=== PATIENT | male | born 1940 | race American Indian/Alaskan Native ===

== ENCOUNTER 2017-03-21 20:35 | Inpatient (IN) | payer MEDICARE ==
[2017-03-21 22:38] LABS: Basophils % (Auto) 0.4 % (0.0-1.8); Eosinophils % (Auto) 2.2 % (0.0-4.3); Hemoglobin 12.2 gm/dl (11.8-15.2); Mean Corpuscular HGB Conc 34 % (32-34); Mean Corpuscular Hemoglobin 32 pg (28-32); Mean Corpuscular Volume 96 fl (84-94); Platelet Count 297 K/mm3 (140-440); Red Blood Count 3.76 M/mm3 (3.65-5.03); Red Cell Distribution Width 13.1 % (13.2-15.2); White Blood Count 14.5 K/mm3 (4.5-11.0)
[2017-03-21 22:40] LABS: Alanine Aminotransferase 20 units/L (7-56); Albumin 3.7 g/dL (3.9-5); Albumin/Globulin Ratio 1.1 %; Alkaline Phosphatase 74 units/L (35-129); Anion Gap 22 mmol/L; BUN/Creatinine Ratio 23.33; Blood Urea Nitrogen 21 mg/dL (9-20); Calcium 8.5 mg/dL (8.4-10.2); Carbon Dioxide 19 mmol/L (22-30); Chloride 82.9 mmol/L (98-107); Glucose 276 mg/dL (75-100); Lipase 113 units/L (13-60); Potassium 4.1 mmol/L (3.6-5.0); Sodium 120 mmol/L (137-145); Total Protein 7.1 g/dL (6.3-8.2)
[2017-03-21] MEDS ORDERED: NACL 0.9% 1000 ML 1,000 ML IV ONE (22:51)
[2017-03-21] MEDS ORDERED: NACL ONE (23:07)
--- NOTE | 2017-03-21 23:15 | Emergency Department Report ---
HPI - General Chief Complaint: Weakness Time Seen by Provider: 03/21/17 22:50 - HPI HPI: Room 19 The patient is a 76-year-old male presenting with a chief complaint of abdominal pain and tremulousness. Family brought in from home for multiple complaints which includes hot and cold flashes for one day, bilateral lower extremity pain for 2 weeks, difficulty ambulating, dizziness and tremulousness for 1 day. Family states the patient is also some her from insomnia. The patient originally complained of difficulty urinating so the niece made the patient drink 8 cups of water and down the patient is urinating frequently Location: [see above] Duration: [see above] Quality: Pain Severity: Moderate Modifying factors: [see above] Context: [see above] Mode of transportation: [not driving] ED Past Medical Hx - Past Medical History Hx Diabetes: Yes Hx Dementia: Yes - Surgical History Past Surgical History?: No - Family History Family history: no significant - Social History Smoking Status: Never Smoker Substance Use Type: None ED Review of Systems ROS: Stated complaint: GENERAL ILLNESS Other details as noted in HPI Comment: All other systems reviewed and negative Constitutional: chills, weakness Eyes: denies: eye pain, eye discharge, vision change ENT: denies: ear pain, throat pain Respiratory: denies: cough, shortness of breath, wheezing Cardiovascular: denies: chest pain, palpitations Endocrine: no symptoms reported Gastrointestinal: abdominal pain Genitourinary: other (difficulty urinating) Musculoskeletal: myalgia Skin: denies: rash, lesions Neurological: other (tremulousness) Psychiatric: denies: anxiety, depression Hematological/Lymphatic: denies: easy bleeding, easy bruising Physical Exam - Physical Exam Vital Signs: Vital Signs 03/21/17 21:06 Temperature 98.9 F Pulse Rate 71 Respiratory 18 Rate Blood Pressure 140/81 O2 Sat by Pulse 99 Oximetry Physical Exam: GENERAL: The patient is well-developed well-nourished male lying on stretcher not appearing to be in acute distress. [] HEENT: Normocephalic. Atraumatic. Extraocular motions are intact. Patient has moist mucous membranes. NECK: Supple. Trachea midline CHEST/LUNGS: Clear to auscultation. There is no respiratory distress noted. HEART/CARDIOVASCULAR: Regular. There is no tachycardia. There is no gallop rub or murmur. ABDOMEN: Abdomen is soft, nontender. Patient has normal bowel sounds. There is no abdominal distention. SKIN: There is no rash. There is no edema. There is no diaphoresis. NEURO: The patient is awake and alert. The patient is cooperative. The patient has no focal neurologic deficits. The patient has normal speech. Cranial nerves II through XII grossly intact, no drift, assistant associate full professor 5+/5 bilaterally. Mild tremulousness noted MUSCULOSKELETAL: There is no evidence of acute injury. ED Course Vital Signs 03/21/17 21:06 Temperature 98.9 F Pulse Rate 71 Respiratory 18 Rate Blood Pressure 140/81 O2 Sat by Pulse 99 Oximetry ED Medical Decision Making - Lab Data Result diagrams: 03/21/17 22:04 03/21/17 22:04 Laboratory Tests 03/21/17 03/21/17 03/21/17 22:04 22:04 22:50 WBC 14.5 H RBC 3.76 Hgb 12.2 Hct 36.0 MCV 96 H MCH 32 MCHC 34 RDW 13.1 L Plt Count 297 Lymph % (Auto) 9.4 L [place] % (Auto) 7.5 H Eos % (Auto) 2.2 Baso % (Auto) 0.4 Lymph # 1.4 [place] # 1.1 H Eos # 0.3 Baso # 0.1 Seg Neutrophils % 80.5 H Seg Neutrophils # 11.7 H Sodium 120 L Potassium 4.1 Chloride 82.9 L Carbon Dioxide 19 L Anion Gap 22 BUN 21 H Creatinine 0.9 Estimated GFR > 60 BUN/Creatinine Ratio 23.33 Glucose 276 H Calcium 8.5 Total Bilirubin 0.50 AST 24 ALT 20 Alkaline Phosphatase 74 Total Protein 7.1 Albumin 3.7 L Albumin/Globulin Ratio 1.1 Lipase 113 H Urine Color Straw Urine Turbidity Clear Urine pH 6.0 Ur Specific [place] 1.001 L Urine Protein <15 mg/dl Urine Glucose (UA) >=500 Urine Ketones Tr Urine Blood Sm Urine Nitrite Neg Urine Bilirubin Neg Urine Urobilinogen < 2.0 Ur Leukocyte Esterase Neg Urine WBC (Auto) < 1.0 Urine RBC (Auto) < 1.0 Urine Bacteria (Auto) 1+ Urine Mucus Few - Differential Diagnosis acute pancreatitis, electrolyte abnormality, UTI Critical care attestation.: If time is entered above; I have spent that time in minutes in the direct care of this critically ill patient, excluding procedure time. ED Disposition Clinical Impression: Hyponatremia, Acute pancreatitis, Acute abdominal pain Disposition: OP ADMIT IP TO THIS HOSP Is pt being admited?: Yes Does the pt Need Aspirin: No Condition: Fair Referrals: PRIMARY CARE, [Primary Care Provider] - 3-5 Days Time of Disposition: 00:21 (hospitalist notified. CT abdomen and pelvis pending )
[2017-03-21] MEDS ORDERED: HALDOL IM ONE (23:34)
[2017-03-21] MEDS ORDERED: ATIVAN IM ONE (23:34)
[2017-03-21 23:42] LABS: Bacteria,Urine 1+ /HPF (Negative); Bilirubin,Urine NEG (Negative); Blood,Urine SM (Negative); Ketones,Urine TR mg/dL (Negative); Leukocyte Esterase,Urine NEG (Negative); Mucus,Urine FEW /HPF; Nitrite,Urine NEG (Negative); Protein,Urine <15 mg/dL mg/dL (Negative); RBC,Urine < 1.0 /HPF (0.0-6.0); Urobilinogen,Urine < 2.0 mg/dL (<2.0); WBC,Urine < 1.0 /HPF (0.0-6.0)
--- NOTE | 2017-03-22 02:44 | Cat Scan Report ---
FINAL REPORT PROCEDURE: CT ABDOMEN PELVIS W CON TECHNIQUE: Computerized axial tomography of the abdomen and pelvis was performed after the IV injection of iodinated nonionic contrast. HISTORY: epigastric abdominal pain COMPARISON: No prior studies are available for comparison. FINDINGS: Visualized lower thorax: Mild chronic obstructive pulmonary changes in both lower lungs.. Liver: There is fatty infiltration of the liver. Spleen: Normal size and attenuation. Gallbladder and biliary system: The gallbladder is absent. No dilatation of the biliary ductal system. Pancreas: Normal. Adrenals: Normal. Kidneys: There is a horseshoe kidney. No hydronephrosis. No renal masses or stones. GI tract: There is a moderate-sized hiatal hernia. The stomach is normal. The small bowel has a normal appearance. The cecum, appendix region and colon are normal.. Lymph nodes and mesentery: Normal. Vasculature: Moderate atherosclerosis of the aorta and branching vessels.. Bladder: Normal. Reproductive organs: Normal. Peritoneum: No free fluid. Musculoskeletal structures: Mild degenerative changes of the spine. No acute osseous abnormality.. Other: None. IMPRESSION: There is no evidence of intestinal or urinary tract obstruction. No ileus or enteritis. Moderate-sized hiatal hernia is identified. Previous cholecystectomy. There is fatty infiltration of the liver.
--- NOTE | 2017-03-22 02:58 | Admit Criteria Form ---
Admission Criteria Documentation: ABDOMINAL PAIN Clinical Indications for Admission to Inpatient Care (Place 'X' for any and all applicable criteria): Admission is indicated for ANY ONE of the following(1)(2)(3)(4)(5): [X ]I. Inpatient admission required rather than observation care (Also use Abdominal Pain: Observation Care, as appropriate) because of ANY ONE of the following: [ ]a) Severe pain requiring acute inpatient management [ ]b) Identification of etiology/finding that requires inpatient care (eg, aortic dissection, free air) [ ]c) Absent bowel sounds with complete ileus(6) [ ]d) Suspected toxic megacolon [X ]e) Severe electrolyte abnormalities requiring inpatient care [ ]f) High fever or infection requiring inpatient admission as indicated by ANY ONE of following(7)(8): [ ] i) Appropriate outpatient or observational care antimicrobial treatment unavailable, not effective, or not feasible [ ] ii) Documented bacteremia [ ] iii) Temperature > 104.9 degrees F (oral) [ ] iv) T >103.1 F (oral) or < 96.8 F(rectal) that does not respond to all emergency treatment measures [ ]g) Signs of intestinal obstruction [B] [ ]h) Hemodynamic instability [ ]i) IV fluid to replace significant ongoing losses (greater than 3 L/m2 per day) (12)(13) [ ]j) Percutaneous or open drainage (eg, abscess, biliary tract ) procedures [ ]k) Parenteral nutrition regimen that must be implemented on inpatient basis [ ]l) Other condition,treatment or monitoring requiring inpatient admission. [ ]II. Peritoneal signs present [ ]III. Surgery needed that cannot be performed on an ambulatory basis. [ ]IV. Evaluation requires patient to not eat or drink for extended period ( eg, more than 24 hours). [ ]V. Contraindications and/or Inappropriate clinical situations for Observational Care in patients with abdominal pain, when ANY ONE of the following is required: [ ]a) Thorough evaluation is required to prevent catastrophic events due to delays in diagnosing (e.g.Mesenteric ischemia) 1,3 [ ]b) Patient with severe pathology or with chronic symptoms unlikely to improve in the ED stay (3) [ ]. General contraindications and/or Inappropriate clinical situations for Observational Care in patients with abdominal pain, when ANY ONE of the following is required: [ ]a) Prediction of prolongation of LOS based on ANY ONE of the following may be considered as a contraindication for observational care 2, 3, 4, 5, 6, 7, 8, 9, 10, 11 [ ]i) Age > 65 yrs. [ ]ii) Patient arriving by ambulance [ ]iii) Patient with high acuity [ ]iv) Patient requiring vital sign monitoring [ ]v) Patient on IV medication [ ]b) Systolic blood pressures 180mmHg 3,12 [ ]c) Patient with altered mental status including delirium and other alteration of consciousness, (3) [ ]d) Patient whose discharge disposition will be to a jail home or rehabilitation home should not be managed in Emergency Department Observation Unit. CMS rule requires 3 days hospital stay before such placement.3,13 [ ]e) Patient with failure to thrive due to broad array of etiologies 3,16,17 [ ]f) Inability to ambulate 3,14 Extended stay beyond goal length of stay may be needed for(2)(3): [ ]a) Persistent abdominal pain with suspected intra-abdominal process [ ]b) Diagnosed condition requiring continued stay (e.g., pancreatitis, complicated diverticulitis) [ ]c) Surgery (e.g., colectomy) The original [facility] content created by [employer] has been revised. The portions of the content which have been revised are identified through the use of italic text or in bold, and [facility] has neither reviewed nor approved the modified material.All other unmodified content is copyright [facility]. Please see references footnoted in the original [facility] [employer] edition 2016 Admission Criteria Met: Yes
[2017-03-22] MEDS ORDERED: ZOFRAN IV PRN (03:01)
[2017-03-22] MEDS ORDERED: TYLENOL PO PRN (03:01)
[2017-03-22] MEDS ORDERED: MILK OF MAGNESIA PO PRN (03:01)
[2017-03-22] MEDS ORDERED: D50W (25GM) IV PRN (03:01)
[2017-03-22] MEDS ORDERED: DULCOLAX PR PRN (03:01)
--- NOTE | 2017-03-22 03:03 | History and Physical Report ---
History of Present Illness Date of examination: 03/22/17 History of present illness: 76 -year-old man with a history of diabetes ,dementia was sent to the emergency room with multiple complaints. The patient is unable to give a history. Per the triage note, the patient has abdominal pain, pain in his legs , can't sleep, shakes when he walks and has cold and hot flashes. Other review of system is unable to be obtained, unable to reach family PAST SURGICAL HISTORY: Unknown SOCIAL HISTORY: Unknown FAMILY HISTORY: Unknown Medications and Allergies Allergies Allergy/AdvReac Type Severity Reaction Status Date / Time No Known Allergies Allergy Verified 03/22/17 00:10 Home Medications Medication Instructions Recorded Confirmed Last Taken Type Unobtainable 03/22/17 03/22/17 Unknown History Active Meds: Active Medications Acetaminophen (Tylenol) 650 mg PO Q4H PRN PRN Reason: Pain MILD(1-3)/Fever >100.5/LOPEZ Bisacodyl (Dulcolax) 10 mg LA QDAY PRN PRN Reason: Constipation unrelieved by MOM Dextrose (D50w (25gm)) 50 ml IV PRN PRN PRN Reason: Hypoglycemia Enoxaparin Sodium (Lovenox) 30 mg SUB-Q QDAY BRIAN Sodium Chloride (Nacl 0.9% 1000 Ml) 1,000 mls @ 75 mls/hr IV DIRECT BRIAN Magnesium Hydroxide (Milk Of Magnesia) 30 ml PO Q4H PRN PRN Reason: Constipation Ondansetron HCl (Zofran) 4 mg IV Q8H PRN PRN Reason: N/V unrelieved by Reglan Exam - Physical Exam Narrative exam: Gen. appearance: Patient lying in bed, no apparent distress HEENT: Normocephalic, atraumatic, pupils equally round and reactive to light, extraocular movement intact, and no sclericterus,. No JVD or thyromegaly or nodule,neck supple, no carotid bruit ,mucous membranes moist, no exudate or erythema Heart: S1, S2, regular rate and rhythm Lungs: Clear to auscultation bilaterally, breathing comfortable Abdomen: Positive bowel sounds, nontender, nondistended, no organomegaly Extremity: No edema, cyanosis, clubbing Skin: No rash, nodules, warm, dry Neuro speech is fluent, moves all four extremities - Constitutional Vitals: Temp Pulse Resp BP Pulse Ox 98.9 F 71 18 140/81 99 03/21/17 21:06 03/21/17 21:06 03/21/17 21:06 03/21/17 21:06 03/21/17 21:06 Results - Labs CBC & Chem 7: 03/21/17 22:04 03/21/17 22:04 Labs: Abnormal lab results 03/21/17 03/21/17 03/21/17 Range/Units 22:04 22:04 22:50 WBC 14.5 H (4.5-11.0) K/mm3 MCV 96 H (84-94) fl RDW 13.1 L (13.2-15.2) % Lymph % (Auto) 9.4 L (13.4-35.0) % [place] % (Auto) 7.5 H (0.0-7.3) % [place] # 1.1 H (0.0-0.8) K/mm3 Seg Neutrophils % 80.5 H (40.0-70.0) % Seg Neutrophils # 11.7 H (1.8-7.7) K/mm3 Sodium 120 L (137-145) mmol/L Chloride 82.9 L (98-107) mmol/L Carbon Dioxide 19 L (22-30) mmol/L BUN 21 H (9-20) mg/dL Glucose 276 H (75-100) mg/dL Albumin 3.7 L (3.9-5) g/dL Lipase 113 H (13-60) units/L Ur Specific [place] 1.001 L (1.003-1.030) - Imaging and Cardiology CT scan - abdomen: report reviewed CT scan - pelvis: report reviewed Assessment and Plan Hyponatremia Failure to thrive Dementia Diabetes Admit to medicine Start IV fluid, consult physical therapy Check fingersticks initiate insulin sliding scale Start DVT prophylaxis
[2017-03-22] MEDS: NACL 0.9% 1000 ML 1,000 ML IV SCH ×2 (05:01→17:56)
[2017-03-22 06:58] LABS: BUN/Creatinine Ratio 18.75; Blood Urea Nitrogen 15 mg/dL (9-20); Calcium 8.5 mg/dL (8.4-10.2); Carbon Dioxide 20 mmol/L (22-30); Chloride 95.1 mmol/L (98-107); Glucose 247 mg/dL (75-100); Potassium 3.7 mmol/L (3.6-5.0); Sodium 130 mmol/L (137-145)
[2017-03-22 07:00] LABS: Anion Gap 19 mmol/L
[2017-03-22] MEDS: LOVENOX SUB-Q SCH (09:21)
[2017-03-22] MEDS ORDERED: LOVENOX SUB-Q SCH (10:00)
[2017-03-22] MEDS ORDERED: NOVOLOG SUB-Q SCH (11:30)
[2017-03-22] MEDS ORDERED: NOVOLOG SUB-Q ONE (12:00)
[2017-03-22] MEDS: NOVOLOG SUB-Q SCH ×2 (17:59→22:52)
--- NOTE | 2017-03-22 18:34 | Event Note ---
Date: 03/22/17 Patient seen and examined, much improved AAO X3. stable, awaiting complete Med rec, discussed with the Nurse, call placed to family. Start on Insulin sliding scale.
[2017-03-22] MEDS ORDERED: ZOCOR PO SCH (22:00)
[2017-03-23 04:54] LABS: Eosinophils % (Auto) 10.5 % (0.0-4.3); Hematocrit 36.8 % (35.5-45.6); Hemoglobin 12.7 gm/dl (11.8-15.2); Mean Corpuscular HGB Conc 35 % (32-34); Mean Corpuscular Hemoglobin 33 pg (28-32); Mean Corpuscular Volume 96 fl (84-94); Platelet Count 306 K/mm3 (140-440); Red Blood Count 3.86 M/mm3 (3.65-5.03); Red Cell Distribution Width 13.4 % (13.2-15.2); White Blood Count 9.5 K/mm3 (4.5-11.0)
[2017-03-23 05:10] LABS: Anion Gap 20 mmol/L; Blood Urea Nitrogen 14 mg/dL (9-20); Calcium 8.5 mg/dL (8.4-10.2); Carbon Dioxide 19 mmol/L (22-30); Chloride 100.8 mmol/L (98-107); Glucose 130 mg/dL (75-100); Potassium 3.7 mmol/L (3.6-5.0); Sodium 136 mmol/L (137-145)
[2017-03-23] MEDS ORDERED: SYNTHROID PO SCH (06:00)
[2017-03-23] MEDS: NOVOLOG SUB-Q SCH ×3 (08:43→17:18)
[2017-03-23] MEDS: LOVENOX SUB-Q SCH (10:00)
--- NOTE | 2017-03-23 10:07 | Discharge Summary ---
Providers - Providers Date of Admission: 03/22/17 03:01 Date of discharge: 03/23/17 Attending physician: AMBAR BAJWA MD 03/22/17 08:59 Consult to Case Management [CONS] Urgent Services Needed at Discharge: Home Health Services Notified:: Case management Phone number called:: [phone] Was contact made?: No Time called:: 09:00 Comment:: message was left Additional Physician Instructions: Patient would like referral to Primary Care Physician. Would also like referral for Home Health. Patient has been having some difficulty with gait since recent arrival from [facility]. 03/22/17 09:18 Physical Therapy Evaluation and Treat [CONS] Urgent Comment: Reason For Exam: Gait issues Weight bearing status?: Full wt bearing Assistive devices?: No Primary care physician: ROAD TEST EXAMINER Hospitalization Reason for admission: Failure to thrive Condition: Stable Hospital course: Patient is a 76 -year-old man with a history of diabetes ,dementia was sent to the emergency room with multiple complaints. Who presented to the ER with complaints of abdominal pain and tremulous with bilateral lower extremity pain for pain 2 weeks, difficulty ambulating and dizziness. Also family reported insomnia and failure to thrive, the patient also complained of difficult urinating, he was started on gentle hydration. Imaging studies did not reveal any obstructive uropathy, his blood sugar was controlled and his mentation improved. he began to carry out activities and was sleeping well. he is stable for discharge. no further lower ext pain. Hyponatremia resolved. DIscharge diagnosis Hyponatremia Failure to thrive Dementia Diabetes Disposition: DC/TX-06 HOME UNDER HOME [facility] Time spent for discharge: 35 mins Core Measure Documentation - Palliative Care Palliative Care/ Comfort Measures: Not Applicable - Core Measures Any of the following diagnoses?: none - VTE Discharge Requirements Deep Vein Thrombosis/Pulmonary Embolism Present on Admission: No Exam - Physical Exam Narrative exam: VITAL SIGNS: Reviewed. GENERAL: The patient appeared well nourished and normally developed. Vital signs as documented. HEAD: No signs of head trauma. EYES: Pupils are equal. Extraocular motions intact. EARS: Hearing grossly intact. MOUTH: Oropharynx is normal. NECK: No adenopathy, no JVD. CHEST: Chest with clear breath sounds bilaterally. No wheezes, rales, or rhonchi. CARDIAC: Regular rate and rhythm. S1 and S2, without murmurs, gallops, or rubs. VASCULAR: No Edema. Peripheral pulses normal and equal in all extremities. ABDOMEN: Soft, without detectable tenderness. No sign of distention. No rebound or guarding, and no masses palpated. Bowel Sounds normal. MUSCULOSKELETAL: Good range of motion of all major joints. Extremities without clubbing, cyanosis or edema. NEUROLOGIC EXAM: Alert and oriented x 3. No focal sensory or strength deficits. Speech normal. Follows commands. PSYCHIATRIC: Mood normal. SKIN: No rash or lesions. - Constitutional Vitals: Temp Pulse Resp BP Pulse Ox 99.0 F 74 18 148/82 97 03/22/17 22:00 03/22/17 22:00 03/22/17 22:00 03/22/17 22:00 03/22/17 22:00 Plan Activity: advance as tolerated, fall precautions Diet: diabetic Special Instructions: physical therapy, occupational therapy Follow up with: PRIMARY CARE, [Primary Care Provider] - 3-5 Days
[2017-03-23 18:18] VITALS: BP 145/72
== END 2017-03-23 20:41 | disposition home health service (06) | DRG 641 ==
LOC: ED 20:35 → 3A 03-22 03:01 → CC2 03-22 03:23
PROVIDERS: ADMIT Internal Medicine; ATTEND Internal Medicine
DX: E87.1 Hypo-osmolality and hyponatremia (principal); E11.9 Type 2 diabetes mellitus without complications; F03.90 Unspecified dementia, unspecified severity, without behavioral disturbance, psychotic disturbance, mood disturbance, and anxiety; R62.7 Adult failure to thrive
CPT/HCPCS: 36415; 74177; 80048; 80053; 81001; 82962; 83690; 84295; 85025; 96360; 96372; G8978-GP; G8979-GP; G8980-GP; J1630; J1650; J1815; J2060; J7030; Q9967

== ENCOUNTER 2017-06-25 09:37 | Emergency (ER) | payer MEDICARE ==
[2017-06-25 10:19] LABS: Basophils % (Auto) 1.2 % (0.0-1.8); Eosinophils % (Auto) 13.9 % (0.0-4.3); Hematocrit 38.5 % (35.5-45.6); Hemoglobin 13.1 gm/dl (11.8-15.2); Mean Corpuscular HGB Conc 34 % (32-34); Mean Corpuscular Hemoglobin 34 pg (28-32); Mean Corpuscular Volume 100 fl (84-94); Platelet Count 286 K/mm3 (140-440); Red Blood Count 3.87 M/mm3 (3.65-5.03); Red Cell Distribution Width 13.7 % (13.2-15.2); White Blood Count 5.8 K/mm3 (4.5-11.0)
[2017-06-25 10:28] LABS: Anion Gap 16 mmol/L; Blood Urea Nitrogen 27 mg/dL (9-20); Calcium 8.7 mg/dL (8.4-10.2); Carbon Dioxide 25 mmol/L (22-30); Chloride 98.3 mmol/L (98-107); Glucose 390 mg/dL (75-100); Potassium 4.7 mmol/L (3.6-5.0); Sodium 135 mmol/L (137-145)
[2017-06-25 12:14] LABS: Bilirubin,Urine NEG (Negative); Blood,Urine NEG (Negative); Ketones,Urine NEG (Negative); Leukocyte Esterase,Urine NEG (Negative); Mucus,Urine FEW /HPF; Nitrite,Urine NEG (Negative); Protein,Urine <15 mg/dL mg/dL (Negative); Urobilinogen,Urine < 2.0 mg/dL (<2.0)
[2017-06-25] MEDS ORDERED: NACL 0.9% 500 ML 500 ML IV ONE (13:10)
--- NOTE | 2017-06-25 13:32 | Emergency Department Report ---
HPI - General Chief Complaint: Nausea/Vomiting/Diarrhea Time Seen by Provider: 06/25/17 12:50 - HPI HPI: Room 39 The patient is a 77-year-old male presented with a chief of diarrhea. The patient has a history of dementia and is very poor historian. Spoke with the patient's niece "Sujey" over the phone and she reports the patient has had copious diarrhea on 2 separate days earlier this week. The patient also complains of chronic abdominal pain and suffers from insomnia. There's been no reported fever or history of nausea and vomiting. The niece states the patient took a course of antibiotics approximately 3 weeks ago for "a sore on his back. " Location: Gastrointestinal system Duration: One week Quality: Diarrhea Severity: Moderate Modifying factors: [see above] Context: [see above] Mode of transportation: [not driving] ED Past Medical Hx - Past Medical History Previous Medical History?: Yes Hx Hypertension: Yes Hx Diabetes: Yes Hx Dementia: Yes - Surgical History Past Surgical History?: No - Family History Family history: no significant - Social History Smoking Status: Never Smoker Substance Use Type: None - Medications Home Medications: Home Medications Medication Instructions Recorded Confirmed Last Taken Type Gabapentin [Neurontin] 100 mg PO Q8HR 03/22/17 03/22/17 Unknown History Insulin Aspart [NovoLOG Flexpen] See Protocol SQ ACHS 03/22/17 03/22/17 Unknown History Levemir Flextouch 28 units SQ HS 03/22/17 03/22/17 Unknown History Levothyroxine [Synthroid] 75 mcg PO QAM 03/22/17 03/22/17 Unknown History Metformin HCl [Fortamet ER] 1,000 mg PO BID 03/22/17 03/22/17 Unknown History Zocor TAB 40 mg PO HS 03/22/17 03/22/17 Unknown History risperiDONE [RisperDAL] 4 mg PO HS 03/22/17 03/22/17 Unknown History traZODone [Desyrel] 150 mg PO QHS 03/22/17 03/22/17 Unknown History Loperamide [Imodium] 2 mg PO QID PRN #20 capsule 06/25/17 Unknown Rx ED Review of Systems ROS: Stated complaint: ABDOMINAL PAIN, UNCONTROLLED BILE MOVEMENT Other details as noted in HPI Comment: All other systems reviewed and negative Constitutional: denies: chills, fever Eyes: denies: eye pain, eye discharge, vision change ENT: denies: ear pain, throat pain Respiratory: denies: cough, shortness of breath, wheezing Cardiovascular: denies: chest pain, palpitations Endocrine: no symptoms reported Gastrointestinal: abdominal pain, diarrhea. denies: nausea, vomiting Genitourinary: denies: urgency, dysuria Musculoskeletal: denies: back pain, joint swelling, arthralgia Skin: denies: rash, lesions Neurological: denies: headache, weakness, paresthesias Psychiatric: denies: anxiety, depression Hematological/Lymphatic: denies: easy bleeding, easy bruising Physical Exam - Physical Exam Vital Signs: Vital Signs 06/25/17 06/25/17 06/25/17 09:44 12:26 12:30 Temperature 98.3 F 98 F Pulse Rate 68 60 Respiratory 18 18 18 Rate Blood Pressure 128/66 Blood Pressure 158/70 [Right] O2 Sat by Pulse 97 98 Oximetry Physical Exam: GENERAL: The patient is well-developed well-nourished male lying on stretcher not appearing to be in acute distress. [] HEENT: Normocephalic. Atraumatic. Extraocular motions are intact. NECK: Supple. No meningitic signs are noted. There is no adenopathy noted. CHEST/LUNGS: Clear to auscultation. There is no respiratory distress noted. HEART/CARDIOVASCULAR: Regular. There is no tachycardia. There is no gallop rub or murmur. ABDOMEN: Abdomen is soft, with mild discomfort to palpation in the right lower quadrant. Patient has normal bowel sounds. There is no abdominal distention. SKIN: There is no rash. There is no edema. There is no diaphoresis. NEURO: The patient is awake and alert. The patient is cooperative. The patient has normal speech MUSCULOSKELETAL: There is no evidence of acute injury. ED Course Vital Signs 06/25/17 06/25/17 06/25/17 09:44 12:26 12:30 Temperature 98.3 F 98 F Pulse Rate 68 60 Respiratory 18 18 18 Rate Blood Pressure 128/66 Blood Pressure 158/70 [Right] O2 Sat by Pulse 97 98 Oximetry ED Medical Decision Making - Lab Data Result diagrams: 06/25/17 10:00 06/25/17 10:00 Laboratory Tests 06/25/17 06/25/17 06/25/17 10:00 10:00 11:54 WBC 5.8 RBC 3.87 Hgb 13.1 Hct 38.5 MCV 100 H MCH 34 H MCHC 34 RDW 13.7 Plt Count 286 Lymph % (Auto) 26.6 [place] % (Auto) 9.8 H Eos % (Auto) 13.9 H Baso % (Auto) 1.2 Lymph # 1.5 [place] # 0.6 Eos # 0.8 H Baso # 0.1 Seg Neutrophils % 48.5 Seg Neutrophils # 2.8 Sodium 135 L Potassium 4.7 Chloride 98.3 Carbon Dioxide 25 Anion Gap 16 BUN 27 H Creatinine 0.9 Estimated GFR > 60 BUN/Creatinine Ratio 30.00 Glucose 390 H Calcium 8.7 Urine Color Yellow Urine Turbidity Clear Urine pH 5.0 Ur Specific [place] 1.026 Urine Protein <15 mg/dl Urine Glucose (UA) >=500 Urine Ketones Neg Urine Blood Neg Urine Nitrite Neg Urine Bilirubin Neg Urine Urobilinogen < 2.0 Ur Leukocyte Esterase Neg Urine WBC (Auto) 1.0 Urine RBC (Auto) 3.0 Urine Mucus Few - Radiology Data Radiology results: report reviewed (CT abdomen and pelvis), image reviewed (CT abdomen and pelvis) CT abdomen and pelvis (read by radiologist)-6 mm posterior segment right lobe hepatic cyst. Nonobstructed whooshing kidney. Colonic constipation. Degenerative changes of the spine and hips. Stable posterior subluxation of the distal coccyx. Stable anterior right hip intramuscular fluid 1.4 x 3.6 cm possibly ganglion cyst or bursitis - Medical Decision Making The patient has not had diarrhea for the past 2 days. Although there is been recent antibiotic use the patient is not having diarrhea currently, patient has a normal white count and is no evidence of colitis on CT scan, subsequently will not initiate Flagyl for C. difficile colitis - Differential Diagnosis pseudomembranous colitis, enteritis, colitis Critical care attestation.: If time is entered above; I have spent that time in minutes in the direct care of this critically ill patient, excluding procedure time. ED Disposition Clinical Impression: Dehydration, Diarrhea Disposition: DC-01 TO HOME OR SELFCARE Is pt being admited?: No Does the pt Need Aspirin: No Condition: Stable Instructions: Acute Diarrhea (ED) Additional Instructions: Return to the emergency department immediately should you develop worsening symptoms, fever, inability to tolerate food or liquid or any other concerns. Prescriptions: Loperamide [Imodium] 2 mg PO QID PRN #20 capsule PRN Reason: Diarrhea Referrals: PRIMARY CARE, [Primary Care Provider] - 3-5 Days CARLY ALFARO MD [Staff Physician] - 3-5 Days (Dr. Alfaro is a middle or intermediate school principal. Please follow up with him for further evaluation) Time of Disposition: 15:43
[2017-06-25] MEDS ORDERED: NACL ONE (13:50)
--- NOTE | 2017-06-25 15:23 | Cat Scan Report ---
FINAL REPORT PROCEDURE: CT ABDOMEN PELVIS W CON TECHNIQUE: Computerized axial tomography of the abdomen and pelvis was performed after the IV injection of iodinated nonionic contrast. HISTORY: diarrhea, right lower quadrant abdominal pain COMPARISON: Contrast-enhanced CT of the abdomen and pelvis 03/22/2017 FINDINGS: Visualized lower thorax: Mild bibasilar subsegmental atelectasis. Liver: 6 millimeter posterior segment right lobe cyst. Spleen: Normal size and attenuation. Gallbladder and biliary system: Cholecystectomy. No biliary ductal obstruction. Pancreas: Normal. Adrenals: Normal. Kidneys: Horseshoe kidney with parenchymal connection. No obstruction. GI tract: Colonic constipation. No evident bowel obstruction. Appendix not definitely seen.. Lymph nodes and mesentery: Normal. Vasculature: Normal. Bladder: Normal. Reproductive organs: Normal. Peritoneum: No free fluid. Musculoskeletal structures: Degenerative changes of the spine and hips. Stable posterior subluxation of the distal coccyx. Stable fluid within the intramuscular right hip anteriorly 1.4 x 3.6 centimeters. Subtle umbilical hernia containing fat.. Other: None. IMPRESSION: 6 millimeter posterior segment right lobe hepatic cyst. Nonobstructed horseshoe kidney. Colonic constipation. Degenerative changes of the spine and hips. Stable posterior subluxation of the distal coccyx. Stable anterior right hip intramuscular fluid 1.4 x 3.6 centimeters possibly ganglion cyst or bursitis. Subtle umbilical hernia containing fat.
[2017-06-25 16:01] VITALS: BP 120/72
== END 2017-06-25 16:01 | disposition home or self-care (01) ==
LOC: ED 09:37
DX: R19.7 Diarrhea, unspecified (principal); E86.0 Dehydration; I10 Essential (primary) hypertension; E11.9 Type 2 diabetes mellitus without complications; Z79.4 Long term (current) use of insulin
CPT/HCPCS: 36415; 74177; 80048; 81001; 82962; 85025; 99284; J7040; Q9967

== ENCOUNTER 2018-12-01 13:32 | Emergency (ER) | payer MEDICARE ==
--- NOTE | 2018-12-01 14:57 | Emergency Department Report ---
Chief Complaint: Medical Clearance Stated Complaint: NEGLECT/NEEDS INVESTIGATOR FRAUD Time Seen by Provider: 12/01/18 14:52 - HPI History of Present Illness: This is a 78 y.o. male that was dropped off here by EMS from [facility]. The patient was seen there today and diagnosed with right ankle and foot pain. He was prescribed diclofenac topical gel. Patient live with his niece and she usually call [employer] to take him home from appointments when she is at work. [facility] refused to send patient home by uber. Patient was brought here via EMS. Patient is requesting a ride home. - ROS Review of Systems: No complaints. - Exam Physical Exam: Well developed, well nourished, and appears to be in no distress. HEENT: normocephalic, PEERL, EOMI, no nasal discharge, oral cavity and pharynx normal. Cardiac: RRR Lungs: Clear to auscultation and percussion w/o rales, rubs, and rhonchi. Abdomen: Soft nontender, +BSx4 Skin: Normal color, texture and turgor. MSE screening note: Focused history and physical exam performed. Due to findings the following was ordered: No labs or radiograph indicated. Patient have a copy of todays visit from [facility] with X-ray of right ankle with no acute findings. Instructed to fill prescription for diclofenac gel and follow up with Orthopedic Surgeon at [facility]. Patient will be discharged home with transportation arrangements. ED Disposition for MSE Clinical Impression: Feared complaint without diagnosis Disposition: DC-01 TO HOME OR SELFCARE Is pt being admited?: No Does the pt Need Aspirin: No Condition: Stable Additional Instructions: Please fill prescription for diclofenac gel as prescribed by [facility] for right foot and ankle pain. Referrals: [facility] [Provider Group] - 3-5 Days Time of Disposition: 15:04
== END 2018-12-01 15:37 | disposition home or self-care (01) ==
LOC: ED 13:32

== ENCOUNTER 2018-12-07 22:14 | Emergency (ER) | payer MEDICARE ==
--- NOTE | 2018-12-08 00:38 | Emergency Department Report ---
ED General Adult HPI - General Chief complaint: Hypoglycemia Stated complaint: HYPOGLYCEMIA Time Seen by Provider: 12/07/18 23:14 Source: patient, EMS Mode of arrival: Stretcher Limitations: Altered Mental Status - History of Present Illness Initial comments: 78-year-old male with history of insulin-dependent diabetes presents to ED with hypoglycemia. Niece found him altered, EMS was called, Accu-Chek showed glucose of 52. EMS states patient was initially combative, oral glucose was given, the patient now seems to be baseline. It is unclear if patient had his insulin. Patient is currently awake and alert, very conversational. Patient requested something to eat. Has no complaints. -: This evening Severity scale (0 -10): 0 Consistency: now resolved Associated Symptoms: confusion Treatments Prior to Arrival: other (oral glucose) - Related Data Home Medications Medication Instructions Recorded Confirmed Last Taken Gabapentin [Neurontin] 100 mg PO Q8HR 03/22/17 03/22/17 Unknown Insulin Aspart [NovoLOG Flexpen] See Protocol SQ ACHS 03/22/17 03/22/17 Unknown Levemir Flextouch 28 units SQ HS 03/22/17 03/22/17 Unknown Levothyroxine [Synthroid] 75 mcg PO QAM 03/22/17 03/22/17 Unknown Metformin HCl [Fortamet ER] 1,000 mg PO BID 03/22/17 03/22/17 Unknown Zocor TAB 40 mg PO HS 03/22/17 03/22/17 Unknown risperiDONE [RisperDAL] 4 mg PO HS 03/22/17 03/22/17 Unknown traZODone [Desyrel] 150 mg PO QHS 03/22/17 03/22/17 Unknown Previous Rx's Medication Instructions Recorded Last Taken Type Loperamide [Imodium] 2 mg PO QID PRN #20 capsule 06/25/17 Unknown Rx Allergies Allergy/AdvReac Type Severity Reaction Status Date / Time No Known Allergies Allergy Verified 03/22/17 00:10 ED Review of Systems ROS: Stated complaint: HYPOGLYCEMIA Other details as noted in HPI Comment: All other systems reviewed and negative Respiratory: denies: cough, shortness of breath Cardiovascular: denies: chest pain Gastrointestinal: denies: abdominal pain, vomiting, diarrhea Neurological: denies: headache ED Past Medical Hx - Past Medical History Previous Medical History?: Yes Hx Hypertension: Yes Hx CVA: Yes Hx Diabetes: Yes Hx Dementia: Yes - Social History Smoking Status: Unknown if ever smoked Substance Use Type: Prescribed - Medications Home Medications: Home Medications Medication Instructions Recorded Confirmed Last Taken Type Gabapentin [Neurontin] 100 mg PO Q8HR 03/22/17 03/22/17 Unknown History Insulin Aspart [NovoLOG Flexpen] See Protocol SQ ACHS 03/22/17 03/22/17 Unknown History Levemir Flextouch 28 units SQ HS 03/22/17 03/22/17 Unknown History Levothyroxine [Synthroid] 75 mcg PO QAM 03/22/17 03/22/17 Unknown History Metformin HCl [Fortamet ER] 1,000 mg PO BID 03/22/17 03/22/17 Unknown History Zocor TAB 40 mg PO HS 03/22/17 03/22/17 Unknown History risperiDONE [RisperDAL] 4 mg PO HS 03/22/17 03/22/17 Unknown History traZODone [Desyrel] 150 mg PO QHS 03/22/17 03/22/17 Unknown History Loperamide [Imodium] 2 mg PO QID PRN #20 capsule 06/25/17 Unknown Rx ED Physical Exam - General Limitations: Altered Mental Status General appearance: alert, in no apparent distress - Head Head exam: Present: atraumatic, normocephalic, normal inspection - Eye Eye exam: Present: normal appearance - ENT ENT exam: Present: mucous membranes moist - Neck Neck exam: Present: normal inspection - Respiratory Respiratory exam: Present: normal lung sounds bilaterally. Absent: respiratory distress - Cardiovascular Cardiovascular Exam: Present: regular rate, normal rhythm - GI/Abdominal GI/Abdominal exam: Present: soft. Absent: distended, tenderness - Extremities Exam Extremities exam: Present: other (ecchymosis to back of left hand) - Neurological Exam Neurological exam: Present: alert, oriented X3 - Psychiatric Psychiatric exam: Present: normal affect, normal mood - Skin Skin exam: Present: warm, dry, intact, normal color ED Course Vital Signs 12/07/18 12/07/18 12/07/18 22:30 22:36 23:00 Temperature 98.1 F Pulse Rate 69 67 70 Respiratory 16 14 16 Rate Blood Pressure 126/76 120/78 Blood Pressure 129/77 [Right] O2 Sat by Pulse 98 99 98 Oximetry 0312/08/18 12/08/18 23:19 00:00 00:31 Temperature Pulse Rate 71 73 67 Respiratory 14 19 14 Rate Blood Pressure 120/78 123/81 123/81 Blood Pressure [Right] O2 Sat by Pulse 98 Oximetry 12/08/18 01:40 Temperature Pulse Rate 57 L Respiratory 12 Rate Blood Pressure Blood Pressure 108/54 [Right] O2 Sat by Pulse 97 Oximetry ED Medical Decision Making - Medical Decision Making 78 year old male with history of diabetes presents to ED with hypoglycemia. Initially given oral glucose by EMS, patient given a meal bag here in ED. Patient has been pleasant, awake, conversing with staff. No decline in mental status. Repeat Accu-Chek within normal range. Vital signs normal. Patient afebrile. Will discharge at this time. - Differential Diagnosis hypoglycemia Critical care attestation.: If time is entered above; I have spent that time in minutes in the direct care of this critically ill patient, excluding procedure time. ED Disposition Clinical Impression: Hypoglycemia Disposition: DC-01 TO HOME OR SELFCARE Is pt being admited?: No Condition: Stable Instructions: Diabetic Hypoglycemia (ED) Referrals: DAVIE ROMANO MD [Primary Care Provider] - 3-5 Days Time of Disposition: 00:34
[2018-12-08 01:41] VITALS: BP 108/54
== END 2018-12-08 01:40 | disposition home or self-care (01) ==
LOC: ED 22:14
DX: E11.649 Type 2 diabetes mellitus with hypoglycemia without coma (principal); I10 Essential (primary) hypertension; F03.90 Unspecified dementia, unspecified severity, without behavioral disturbance, psychotic disturbance, mood disturbance, and anxiety; Z86.73 Personal history of transient ischemic attack (TIA), and cerebral infarction without residual deficits
CPT/HCPCS: 82962